=== PATIENT | female | born 1955 | race Caucasian/White ===

== ENCOUNTER 2016-10-03 08:45 | Day surgery (SDC) | payer OTHER ==
[~2016-10-03] VITALS: Ht 175.3 cm; Wt 90.7 kg
[2016-10-03 09:10] VITALS: BP 177/87
[2016-10-03 13:50] VITALS: BP 142/78
== END 2016-10-03 12:30 | disposition home or self-care (01) ==
LOC: GI 08:45 → DS 11:30 → OR 11:30 → GI 11:30
PROVIDERS: Internal Medicine Gastroenterology
PROC: 0DBN8ZZ Excision of Sigmoid Colon, Via Natural or Artificial Opening Endoscopic (ICD-10-PCS; principal; 2016-10-03 11:30)
DX: Z12.11 Encounter for screening for malignant neoplasm of colon (principal); D12.5 Benign neoplasm of sigmoid colon
CPT/HCPCS: 45378; J1200; J1610; J2250; J2310; J3010; J3490